=== PATIENT | female | born 1965 | race Caucasian/White ===

== ENCOUNTER 2017-06-03 08:00 | Emergency (ER) | payer OTHER ==
[2017-06-03 08:12] VITALS: BP 109/62
--- NOTE | 2017-06-03 08:32 | UC ---
Skin Complaint HPI - HPI Summary HPI Summary: 1 week of itching patches of red with vesicle rash --began after doing lawn work - History of Current Complaint Chief Complaint: UCSkin Time Seen by Provider: 06/03/17 08:31 Stated Complaint: RASH Hx Obtained From: Patient ?: No Onset/Duration: Sudden Onset, Lasting Weeks - 1, Still Present Skin Exposure Onset/Duration: Weeks Ago - 1 Onset Severity: Moderate Current Severity: Moderate Location: Diffuse Character: Redness, Painful Aggravating: Nothing Alleviating: Nothing Associated Signs & Symptoms: Positive: Rash Related History: Possible Reaction to: Environmental Exposure - Allergy/Home Medications Allergies/Adverse Reactions: Allergies Allergy/AdvReac Type Severity Reaction Status Date / Time Naproxen Allergy Hives Verified 06/03/17 08:12 Home Medications: Home Medications Amphetamine MIXED SALT TAB* [Adderall TAB*] 10 mg PO DAILY 06/03/17 [History Confirmed 06/03/17] Amphetamine MIXED SALTS TAB* [Adderall TAB*] 7.5 mg PO 1700 06/03/17 [History Confirmed 06/03/17] oxyCODONE/Acetamin 5/325 MG* [Percocet 5/325 TAB*] 1 tab PO TID PRN 06/03/17 [ History Confirmed 06/03/17] Review of Systems Constitutional: Negative Skin: Rash - red base, vesicles, itchy scattered patches Eyes: Negative ENT: Negative Respiratory: Negative Cardiovascular: Negative Gastrointestinal: Negative Genitourinary: Negative Motor: Negative Neurovascular: Negative Musculoskeletal: Negative Neurological: Negative Psychological: Negative All Other Systems Reviewed And Are Negative: Yes PMH/Surg Hx/FS Hx/Imm Hx Previously Healthy: Yes Psychological History: Other Other Psychological History: issues with concentration---relef with Adderal - Surgical History Surgical History: Yes Surgery Procedure, Year, and Place: RIGHT KNEE X10, THYROID, PARTIAL HYST, C- SECT, APPendectomy, TUMOR REMOVED FROM THIGH - Family History Known Family History: Positive: Other - Lung cancer - Social History Occupation: Employed Full-time Lives: With Family Alcohol Use: Occasionally Alcohol Amount: 1-2 DRINKS/WEEKEND Substance Use Type: None Smoking Status (MU): Never Smoked Tobacco Have You Smoked in the Last Year: No - Immunization History Most Recent Influenza Vaccination: 08/16 Physical Exam Triage Information Reviewed: Yes Appearance: Well-Appearing, No Pain Distress, Well-Nourished Vital Signs: Initial Vital Signs Temp 98.0 F 06/03/17 08:09 Pulse 88 06/03/17 08:09 Resp 16 06/03/17 08:09 BP 109/62 06/03/17 08:09 Pulse Ox 100 06/03/17 08:09 Vital Signs Reviewed: Yes Eye Exam: Normal Eyes: Positive: Conjunctiva Clear ENT Exam: Normal ENT: Positive: Normal ENT inspection, Hearing grossly normal. Negative: Nasal congestion, Nasal drainage, Trismus, Muffled/hoarse voice Dental Exam: Normal Neck exam: Normal Neck: Positive: Supple, Nontender, No Lymphadenopathy Respiratory Exam: Normal Respiratory: Positive: Chest non-tender, No respiratory distress, No accessory muscle use Cardiovascular Exam: Normal Cardiovascular: Positive: RRR, Pulses Normal, Brisk Capillary Refill Musculoskeletal Exam: Normal Musculoskeletal: Positive: Strength Intact, ROM Intact, No Edema Neurological Exam: Normal Neurological: Positive: Alert, Muscle Tone Normal Psychological Exam: Normal Skin Exam: Other Skin: Positive: rashes - patches of itchy red with vesiculer resh Course/Dx - Course Course Of Treatment: Lideex 0.05% Bid for 2 weeks max use benadryl prn (pt refused prednisone) follow with pcp - Differential Diagnoses - Skin Complaint Differential Diagnoses: Contact Dermatitis, Impetigo, Poison [place], Poison [place], Varicella Zoster - Diagnoses Provider Diagnoses: contact dermititis to unknown enviromental exposure Discharge - Discharge Plan Condition: Stable Disposition: HOME Prescriptions: Fluocinonide 0.05% CM (NF) [Lidex 0.05% CREAM (NF)] 1 applic TOPICAL BID #60 gm Patient Education Materials: Diphenhydramine (By mouth), Contact Dermatitis (ED ) Referrals: Chidi Chaves MD [Primary Care Provider] - If Needed
== END 2017-06-03 08:53 | disposition home or self-care (01) ==
LOC: UCEAST 08:00
DX: L25.9 Unspecified contact dermatitis, unspecified cause (principal)
CPT/HCPCS: 99212; G0463

== ENCOUNTER 2017-09-27 16:19 | Emergency (ER) | payer OTHER ==
--- NOTE | 2017-09-27 18:41 | RAD ---
INDICATION: 2 month history of left upper leg pain negative sonograms September 26, 2017, September 27, 2017 COMPARISON: Sonograms September 26, 2017, September 27, 2017 TECHNIQUE: 193 noncontrast axial source images were acquired. Coronal and sagittal reconstructed images were generated. Bone and soft tissue windows are reviewed. FINDINGS: There are no acute bony findings. The muscular elements about the upper extremity are normal. The fat muscle interface is intact. The subcutaneous soft tissues are normal. IMPRESSION: NO CT ABNORMALITIES. SUGGEST CLINICAL MANAGEMENT OF THE PAIN AND NONEMERGENT MR IMAGING IF THIS REMAINS A PERSISTENT OR WORRISOME FINDING.
[2017-09-27 18:46] LABS: Hematocrit 39 % (35-47); Hemoglobin 13.2 g/dl (12.0-16.0); Mean Corpuscular HGB Conc 34 g/dl (31-36); Mean Corpuscular Hemoglobin 31 pg (27-31); Mean Corpuscular Volume 90 fL (80-97); Mean Platelet Volume 9 um3 (7.4-10.4); Red Blood Count 4.31 10^6/ul (4.0-5.4); Red Cell Distribution Width 14 % (10.5-15); White Blood Count 6.1 10^3/ul (3.5-10.8)
[2017-09-27 19:09] LABS: Albumin 4.3 g/dL (3.2-5.2); BUN/Creatinine Ratio 16.3 (8-20); Calcium 9.3 mg/dL (8.6-10.3); EGFR African American 96.1 (>60); EGFR Non-African American 74.7 (>60); Globulin 2.5 g/dL (2-4); Magnesium 2.2 mg/dL (1.9-2.7); Potassium 3.7 mmol/L (3.5-5.0); Total Bilirubin 0.4 mg/dL (0.2-1.0); Total Protein 6.8 g/dL (6.4-8.9)
--- NOTE | 2017-09-27 19:21 | ED ---
Lower Extremity - HPI Summary HPI Summary: 52F presents with left thigh pain for months. She had a previous tumor in the area that was removed months ago. She states that the pain is sharp and is located onto the anterior lateral aspect of the thigh and does not radiate anywhere. She denies any numbness or tingling or any weakness. She denies any injury. She denies any decrease in sensation. She has a history of blood clot in other extremity but had a normal u/s today. She denies any back pain. Her primary sent her in for lab work and for a CT to see if tumor came back. It was a benign tumor that was removed in [place]. - History of Current Complaint Chief Complaint: EDGeneral Stated Complaint: LT THIGH PAIN Time Seen by Provider: 09/27/17 17:38 Pain Intensity: 4 - Allergies/Home Medications Allergies/Adverse Reactions: Allergies Allergy/AdvReac Type Severity Reaction Status Date / Time Naproxen Allergy Hives Verified 06/03/17 08:12 PMH/Surg Hx/FS Hx/Imm Hx Endocrine/Hematology History: Denies: Hx Diabetes, Hx Thyroid Disease Cardiovascular History: Reports: Hx Rheumatic Fever - 1992 Denies: Hx Hypertension, Hx Pacemaker/ICD Respiratory History: Denies: Hx Asthma, Hx Chronic Obstructive Pulmonary Disease (COPD) GI History: Reports: Hx Gastroesophageal Reflux Disease Denies: Hx Ulcer History: Denies: Hx Renal Disease Musculoskeletal History: Reports: Hx Arthritis - KNEES, Hx Bursitis - RT LEG Sensory History: Denies: Hx Hearing Aid Neurological History: Reports: Hx Headaches - FREQUENT Psychiatric History: Denies: Hx Panic Disorder - Cancer History Hx Chemotherapy: No Hx Radiation Therapy: No - Surgical History Surgery Procedure, Year, and Place: RIGHT KNEE X10, THYROID, PARTIAL HYST, C- SECT, APPendectomy, TUMOR REMOVED FROM THIGH Hx Anesthesia Reactions: No Infectious Disease History: No Infectious Disease History: Denies: Hx Clostridium Difficile, Hx Hepatitis, Hx Human Immunodeficiency Virus (HIV), Hx of Known/Suspected MRSA, Hx Shingles, Hx Tuberculosis, Hx Known/ Suspected VRE, Hx Known/Suspected VRSA, History Other Infectious Disease, Traveled Outside the [place] in Last 30 Days - Family History Known Family History: Positive: Other - Lung cancer - Social History Alcohol Use: Occasionally Alcohol Amount: 1-2 DRINKS/WEEKEND Substance Use Type: Reports: None Smoking Status (MU): Never Smoked Tobacco Have You Smoked in the Last Year: No Review of Systems Negative: Fever Negative: Chest Pain Negative: Shortness Of Breath Positive: Myalgia - left thigh pain All Other Systems Reviewed And Are Negative: Yes Physical Exam Triage Information Reviewed: Yes Vital Signs On Initial Exam: Initial Vitals Temp Pulse Resp BP Pulse Ox 98.1 F 86 20 126/77 100 09/27/17 16:23 09/27/17 16:23 09/27/17 16:23 09/27/17 16:23 09/27/17 16:23 Vital Signs Reviewed: Yes Appearance: Positive: Well-Appearing Skin: Positive: Warm, Dry Head/Face: Positive: Normal Head/Face Inspection Eyes: Positive: Normal, Conjunctiva Clear Respiratory/Lung Sounds: Positive: Clear to Auscultation, Breath Sounds Present Cardiovascular: Positive: Normal, RRR Musculoskeletal: Positive: Strength/ROM Intact - left thigh, Other - tender on anterior lateral left thigh, good pulses, sensation grossly intact Neurological: Positive: Reflexes Intact - patella Psychiatric: Positive: Normal - [place] Coma Scale Coma Scale Total: 15 Diagnostics - Vital Signs Vital Signs Temp Pulse Resp BP Pulse Ox 09/27/17 16:23 98.1 F 86 20 126/77 100 - Laboratory Lab Results: Lab Results 09/27/17 09/27/17 Range/Units 18:40 18:40 WBC 6.1 (3.5-10.8) 10^3/ul RBC 4.31 (4.0-5.4) 10^6/ul Hgb 13.2 (12.0-16.0) g/dl Hct 39 (35-47) % MCV 90 (80-97) fL MCH 31 (27-31) pg MCHC 34 (31-36) g/dl RDW 14 (10.5-15) % Plt Count 221 (150-450) 10^3/ul MPV 9 (7.4-10.4) um3 Neut % (Auto) 58.3 (38-83) % Lymph % (Auto) 32.4 (25-47) % [place] % (Auto) 6.0 (1-9) % Eos % (Auto) 2.4 (0-6) % Baso % (Auto) 0.9 (0-2) % Absolute Neuts (auto) 3.6 (1.5-7.7) 10^3/ul Absolute Lymphs (auto) 2.0 (1.0-4.8) 10^3/ul Absolute Monos (auto) 0.4 (0-0.8) 10^3/ul Absolute Eos (auto) 0.1 (0-0.6) 10^3/ul Absolute Basos (auto) 0.1 (0-0.2) 10^3/ul Absolute Nucleated RBC 0 10^3/ul Nucleated RBC % 0.1 Sodium 138 (133-145) mmol/L Potassium 3.7 (3.5-5.0) mmol/L Chloride 105 (101-111) mmol/L Carbon Dioxide 26 (22-32) mmol/L Anion Gap 7 (2-11) mmol/L BUN 13 (6-24) mg/dL Creatinine 0.80 (0.51-0.95) mg/dL Est GFR ( Amer) 96.1 (>60) Est GFR (Non-Af Amer) 74.7 (>60) BUN/Creatinine Ratio 16.3 (8-20) Glucose 97 (70-100) mg/dL Calcium 9.3 (8.6-10.3) mg/dL Magnesium 2.2 (1.9-2.7) mg/dL Total Bilirubin 0.40 (0.2-1.0) mg/dL AST 17 (13-39) U/L ALT 14 (7-52) U/L Alkaline Phosphatase 41 (34-104) U/L Total Protein 6.8 (6.4-8.9) g/dL Albumin 4.3 (3.2-5.2) g/dL Globulin 2.5 (2-4) g/dL Albumin/Globulin Ratio 1.7 (1-3) Result Diagrams: 09/27/17 18:40 09/27/17 18:40 Lab Statement: Any lab studies that have been ordered have been reviewed, and results considered in the medical decision making process. - CT leg CT Interpretation: No Acute Changes CT Interpretation Completed By: Radiologist Lower Extremity Course/Dx - Course Course Of Treatment: 52F presents with left thigh pain for months. She had a previous tumor in the area that was removed months ago. She states that the pain is sharp and is located onto the anterior lateral aspect of the thigh and does not radiate anywhere. She denies any numbness or tingling or any weakness. She denies any injury. She denies any decrease in sensation. She has a history of blood clot in other extremity but had a normal u/s today. She denies any back pain. Her primary sent her in for lab work and for a CT to see if tumor came back. It was a benign tumor that was removed in [place]. on exam full strenght of extremity, reflex intact. CT normal. labs normal. patient understands and agrees with plan. - Diagnoses Differential Diagnosis/HQI/PQRI: Positive: DVT, Sprain, Other - tumor Provider Diagnoses: Left thigh pain Discharge - Discharge Plan Condition: Good Disposition: HOME Patient Education Materials: Leg Pain (ED) Referrals: Chidi Chaves MD [Primary Care Provider] - Additional Instructions: Take Tylenol every 6 hours for pain Ice/heat Follow up with primary for continued care Return to ED if develop any new or worsening symptoms
[2017-09-27 19:43] VITALS: BP 119/69
== END 2017-09-27 19:42 | disposition home or self-care (01) ==
LOC: ED 16:19
DX: M79.652 Pain in left thigh (principal)
CPT/HCPCS: 36415; 80053; 83735; 85025; 99282

== ENCOUNTER 2018-04-11 13:51 | Inpatient (IN) | payer OTHER ==
--- NOTE | 2018-04-11 15:12 | RAD ---
INDICATION: Headache. COMPARISON: Comparison is made with a prior CT of the brain from January 29, 2015. TECHNIQUE: Contiguous axial sections of the brain were obtained from the skull base to the vertex without contrast. FINDINGS: The ventricles, cisterns and sulci are within normal limits. No significant focal abnormality or mass effect is seen. There is no evidence for hemorrhage. No significant focal osseous abnormality is seen. The visualized portion of the paranasal sinuses and mastoid air cells appear clear. IMPRESSION: NO EVIDENCE FOR ACUTE INTRACRANIAL ABNORMALITY.
[2018-04-11 15:27] LABS: Hematocrit 38 % (35-47); Hemoglobin 12.7 g/dl (12.0-16.0); Mean Corpuscular HGB Conc 34 g/dl (31-36); Mean Corpuscular Hemoglobin 31 pg (27-31); Mean Corpuscular Volume 91 fL (80-97); Platelet Count 197 10^3/ul (150-450); Red Blood Count 4.13 10^6/ul (4.0-5.4); Red Cell Distribution Width 14 % (10.5-15); White Blood Count 4.7 10^3/ul (3.5-10.8)
[2018-04-11 15:29] LABS: Urine Appearance Clear; Urine Blood Negative (Negative); Urine Color Straw; Urine Ketones Negative (Negative); Urine Protein Negative (Negative); Urine Specific Gravity 1.004 (1.010-1.030); Urine Urobilinogen Negative (Negative)
[2018-04-11 15:37] LABS: INR 0.87 (0.77-1.02)
[2018-04-11] MEDS ORDERED: NS 0.9% 1000 ML* 1,000 ML IV ONE (16:21)
[2018-04-11] MEDS ORDERED: Aspirin 81 mg CHEW TAB* 81 MG TAB.CHEW PO ONE (16:49)
[2018-04-11] MEDS ORDERED: Iohexol 350* (CONTRAST) 500 ML MDV IV ONE (16:53)
[2018-04-11] MEDS ORDERED: Iodixanol* (CONTRAST) 320 MG/ML 100 ML SDV IV ONE (16:57)
--- NOTE | 2018-04-11 18:00 | RAD ---
CPT II: CPT II Codes: 3100F INDICATION: Resolved right-sided facial droop. Now with headache. COMPARISON: Noncontrast CT of the brain from the same day does not reveal any acute abnormalities. TECHNIQUE: A CT angiogram of the head and neck was performed with 80 cc of Omnipaque 350. Contiguous axial sections were obtained from the thoracic inlet through the [place] of [place]. Images were reconstructed in the sagittal, coronal planes and in a 3-D volume rendered format. The distal cervical internal carotid artery diameter is used as the denominater for stenosis measurement. CTA NECK: The common and internal carotid arteries are patent without hemodynamically significant stenosis. Right: Below the level of the carotid bifurcation the common carotid artery measures 6 mm in diameter. The right internal carotid artery also measures 6 mm in diameter above the bifurcation yielding 0% degree stenosis. Left: Below the carotid bifurcation the common carotid artery measures 7 mm in diameter. The internal carotid artery immediately above the bifurcation measures 7 mm in diameter yielding 0% degree stenosis. The vertebral arteries are patent without gross abnormality. CTA of the brain: The internal carotid, anterior and middle cerebral arteries appear are patent without high grade stenosis or occlusion. The vertebral, basilar and posterior cerebral arteries appear patent without high grade stenosis or occlusion. The right posterior communicating artery is either extremely diminutive or absent. No focal luminal filling defect, aneurysm or vascular malformation is seen. NON-ARTERIAL FINDINGS: There is surgical material overlying the right lobe of the thyroid. The left lobe of the thyroid is heterogeneous in attenuation. IMPRESSION: Normal CT angiography of the head and neck.
[2018-04-11] MEDS ORDERED: Ondansetron INJ* 2 MG/ML SYRINGE (from 40/20 VIAL) IV PRN (18:21)
[2018-04-11] MEDS ORDERED: Acetaminophen TAB* 325 MG PO PRN (18:21)
[2018-04-11] MEDS ORDERED: oxyCODONE/Acetamin 5/325 MG* TAB PO PRN (18:23)
[2018-04-11] MEDS ORDERED: NS 0.9% 1000 ML* 1,000 ML IV SCH (19:00)
--- NOTE | 2018-04-11 20:33 | RAD ---
HISTORY: Headache and right-sided facial tingling COMPARISONS: Noncontrast CT of the brain as well as CTA of the head and neck from the same date TECHNIQUE: The following sequences were obtained of the head: Sagittal T1-weighted images, axial T2-weighted images, axial FLAIR images, axial susceptibility weighted images, axial T1-weighted images. Additionally, axial diffusion-weighted images were obtained with calculated apparent diffusion coefficients.. FINDINGS: HEMORRHAGE/INFARCT: There is no hemorrhage or acute infarct. MASSES/SHIFT: There is no mass or shift. EXTRA-AXIAL SPACES/MENINGES: There are no extra-axial fluid collections. SULCI AND VENTRICLES: The sulci and ventricles are normal in size and position for the patient's stated age. CEREBRUM: At the right thalamus there is a 6 mm focus of T2 bright signal (image 14 series 8). This does not correspond to bright signal on diffusion-weighted imaging. Otherwise the arechiga-white matter differentiation is maintained. BRAINSTEM: There are no focal parenchymal abnormalities. CEREBELLUM: There are no focal parenchymal abnormalities. The cerebellar tonsils are normal in size and position. SELLA: The sella is normal. PINEAL: The pineal region is clear. CP ANGLE/TEMPORAL BONES: The labyrinthine structures are grossly normal. VESSELS: Normal flow-voids are noted within the visualized vertebral vasculature. DIFFUSION ABNORMALITIES: There are no diffusion abnormalities. PARANASAL SINUSES/MASTOIDS: The paranasal sinuses are clear. ORBITS: The orbits are unremarkable. BONES AND SOFT TISSUE: No bone or soft tissue abnormalities are noted. IMPRESSION: POSSIBLE SMALL FOCI OF MICROVASCULAR DISEASE IN THIS OTHERWISE NONACUTE BRAIN MRI.
--- NOTE | 2018-04-11 22:32 | HP ---
CONTINUATION ADDENDUM NOW INCLUDED ON THIS REPORT ADMISSION HISTORY AND PHYSICAL: CC: Dr. Chaves; Dr. Constanza Cabrera.* HISTORY AND PHYSICAL: DATE OF ADMISSION: 04/11/18 PRIMARY CARE PROVIDER: Dr. Chaves. MY ATTENDING WHILE IN THE HOSPITAL: Yue Casper MD * (DICTATED BY ANDREEA IBRAHIM) CONSULTING NEUROLOGIST: Constanza Cabrera MD CHIEF COMPLAINT: Vertigo, neurological deficits. HISTORY OF PRESENT ILLNESS: Ms. Boo is a 52-year-old female with past medical history significant for a possible brain lesion on MRI from 2012, arthritis, and a thyroid lesion, who presents after yesterday she had an episode that lasted approximately 10, 20 minutes of which she describes as the room spinning, numbness in her right synagogue, a sensation of drooping in her left face as well as palpitations and presyncope. The patient also broke out in sweat. The patient afterwards developed a headache which is frontal, was initially very severe but has been diminishing, not improved with naproxen. The patient has a long history of headaches and had an MRI in 2012, which showed a possible brain lesion, ischemic or neoplastic not ruled out, that was not present on a repeat MRI. The patient continued having headaches, but has not had them for approximately 2 years. The patient's current headache is pounding and makes her just want to lie down and sleep it off. No photophobia. The patient has never had an episode like the one that occurred yesterday before. The patient has been having issues with leg cramping in both legs, but more on her right than the left, primarily in her big toe that resolves with massaging but is very painful. The patient with her episode had no chest pain, shortness of breath, nausea, or vomiting. The patient had no nausea or vomiting with her headache. CONTINUATION ADDENDUM: Due to concern for TIA we were asked to evaluate for admission PAST MEDICAL HISTORY: Brain lesion, arthritis, thyroid lesion. PAST SURGICAL HISTORY: Several right knee surgeries, removal of thyroid lesion , hysterectomy. MEDICATIONS: 1. Adderall 10 mg p.o. daily. 2. Valtrex, unknown dose as needed. 3. Percocet one tab p.o. q.6 hours as needed. ALLERGIES: NAPROXEN. FAMILY HISTORY: The patient's father of lung cancer. The patient's mother is alive and healthy. The patient has 2 siblings who are healthy. The patient has one child who is also in good health. SOCIAL HISTORY: The patient has never smoked. The patient uses alcohol occasionally. The patient has never used illicit drugs. 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 The patient is and has one child. The patient would like her , Zeke Boo, to be her healthcare proxy. REVIEW OF SYSTEMS: A 14-point review of systems was reviewed and is negative except as stated above. PHYSICAL EXAMINATION GENERAL: The patient is a 52-year-old female who appears stated age and sitting comfortably in bed, in no acute distress. VITAL SIGNS: Temperature 99.4, pulse rate 81, respiratory rate 15, oxygen saturation 90% on room air, blood pressure 113/72. HEENT: Head normocephalic and atraumatic. Sclerae anicteric. No conjunctival injection. Nasal mucosa moist. Oral mucosa moist. No pharyngeal erythema, discharge, or exudate. NECK: Supple, nontender. No lymphadenopathy. No carotid bruit auscultated. No JVD. RESPIRATORY: Clear to auscultation bilaterally. No wheezes, rales, or rhonchi. Good air exchange bilaterally. CARDIAC: Regular rate and rhythm. No clicks, murmurs, gallops, or rubs. Pulses 2+ in the bilateral dorsalis pedis, posterior tibialis, and radial areas. No calf tenderness noted bilaterally. ABDOMEN: Soft, nontender, and nondistended. Bowel sounds present and normoactive in all 4 quadrants. No hepatosplenomegaly. No abdominal bruits auscultated. GENITOURINARY: No suprapubic or CVA tenderness. NEUROLOGIC: Cranial nerves II through XII intact. No focal deficits. Strength preserved in bilateral upper and lower extremities distally and proximally. Cerebellar testing performed without difficulty. Sensation to light touch intact in the bilateral upper and lower extremities distally and proximally. Reflexes 2+ in the bilateral biceps and patellar areas, 1+ in the Achilles. Downgoing Babinski bilaterally. SKIN: Clean, dry, and intact. No rash. PSYCHIATRIC: Very pleasant and cooperative. DIAGNOSTIC STUDIES/LAB DATA: White blood cell count 4.7, hemoglobin 12.7, hematocrit 38. INR 0.87. APTT 29.4. Sodium 140, potassium 3.7, chloride 107, carbon dioxide 26, anion gap 7, BUN 14, creatinine 0.65, glucose 87, calcium 8.9. Bilirubin 0.4, AST 18, ALT 19, alkaline phosphatase 45. Troponin I 0.00. Total protein 6.3. Albumin 4.1, globulin 2.2. Urine shows specific gravity 1.004. No significant findings. Studies done while in the hospital: Brain CT read as no evidence for acute intracranial abnormality. A head CTA read as normal CT angiography of the head and neck. ASSESSMENT AND PLAN: IMPRESSION: 1. Ms. Boo is a 52-year-old female with past medical history significant for a brain lesion and removal of a thyroid nodule, who presents one day after having an episode that lasted approximately 10 to 20 minutes of dizziness, palpitations, presyncope, numbness, and facial droop with persistent headache to this point. The patient has a known history of headaches, which have at this point resolved. The patient will be admitted to the hospital for workup for transient ischemic attack including brain MRI, echocardiogram, and telemetry monitoring. The patient will also be seen in consultation by Neurology. 2. Brief neurological deficits, possible transient ischemic attack. The patient had neurological deficits spanning several different neurological regions including vertigo, numbness of her face, and possible facial droop. These were accompanied by cardiac in terms of palpitations and presyncope. The patient has never had an episode like this before. The patient's CT and CTA of her head were negative. The patient has a known brain lesion, which causes headaches. The patient has a persistent headache, unresponsive to medication. We will get an MRI of the brain to further characterize the lesion and look for ischemic foci. The patient appreciates Neurology input. It is possible that the patient's palpitations represented atrial fibrillation. She may have paroxysmal atrial fibrillation that has not been symptomatic before and that this is an embolic stroke. This could also be paradoxical embolus. This could also represent migraine aura, but the patient's headache does not have all the migraine's characteristics. The patient will be started on aspirin. The patient will have a lipid profile drawn, transthoracic echocardiogram,and MRI of the brain. The patient will have neurological checks every 4 hours. 3. Arthritis. The patient will have Tylenol and ibuprofen available for her arthritis. The patient will have her Percocet held at this time as to not to interfere with possible neurological evaluation. 4. Leg spasms. This possibly represents restless leg syndrome or electrolyte abnormality. We will monitor the patient's potassium and magnesium. This should be followed as outpatient. We will not institute treatment at this time. 5. DVT prophylaxis. The patient will have ambulation as tolerated. The patient will be up ad saman. The patient is low risk. 6. FEN. The patient will have normal saline at 75 mL an hour for one additional liter to see if dehydration is playing a role in her headache. 7. Disposition. The patient will be admitted under observation. TIME SPENT: Approximately 60 minutes were spent on this admission, 30 of which was spent [id number] with the patient obtaining the history and physical and discussing the treatment plan. This case has been discussed with my attending, Dr. Parveen Herron, and he is in agreement. ANDREEA IBRAHIM [id number]/CPS #: [id number]/CPS #: [id number] MICHAELA
[2018-04-12 05:07] LABS: ABS Basophils 0 10^3/ul (0-0.2); ABS Eosinophils 0.1 10^3/ul (0-0.6); ABS Lymphocytes 1.3 10^3/ul (1.0-4.8); ABS Monocytes 0.3 10^3/ul (0-0.8); ABS Nucleated RBC 0 10^3/ul; Eosinophil % 3.2 % (0-6); Hematocrit 34 % (35-47); Hemoglobin 11.5 g/dl (12.0-16.0); Lymphocyte % 35.3 % (25-47); Mean Corpuscular HGB Conc 34 g/dl (31-36); Mean Corpuscular Hemoglobin 32 pg (27-31); Mean Corpuscular Volume 92 fL (80-97); Nucleated Red Blood Cells % 0; Platelet Count 164 10^3/ul (150-450); Red Blood Count 3.66 10^6/ul (4.0-5.4); Red Cell Distribution Width 14 % (10.5-15); White Blood Count 3.8 10^3/ul (3.5-10.8)
[2018-04-12 05:22] LABS: EGFR Non-African American 117.6 (>60)
[2018-04-12] MEDS ORDERED: Amphetamine MIXED SALT TAB* 10 MG TAB PO SCH (09:00)
[2018-04-12] MEDS: Aspirin EC TAB* 81 MG TAB.EC PO SCH (10:16)
[2018-04-12] MEDS: Ibuprofen TAB* 400 MG PO PRN (10:24)
--- NOTE | 2018-04-12 13:19 | CONS ---
CC: Dr. Constanza Cabrera; Dr. Raffaele Purdy; Dr. Chidi Chaves CONSULTATION REPORT: DATE OF CONSULT: 04/12/18 REASON FOR CONSULT: Possible TIA/stroke. REQUESTING PHYSICIAN: ANDREEA Mayer CHIEF COMPLAINT: Right face drooping, dizziness, palpitations, facial abnormality. 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 She indicates she was sitting in her desk for about 30 minutes when she became extremely hot and felt as if she was moving. There was tingling on the top of her head. She went to the bathroom and she felt lightheaded. She looked in the mirror and did not look good. She felt as if she was going to faint. Her heart was beating fast. She developed sweating on the back of her neck. EMT was called and she felt like the right side of her face was drooping, however no one saw this. When asked if her speech was okay, she indicated she did not think so, but there was no particular difficulty communicating. She developed a headache about one to two hours afterwards in the bilateral temporofrontal region with some pounding, no associated photophobia, phonophobia, nausea or vomiting. She has had a history of frequent headaches in the past, which have gone away with no associated focal features. Of note she is on Adderall, which has been started relatively recently in the setting of her father's . She had a cup of coffee in the morning and breakfast and little bit of water. She denied any chest pain and indigestion at that time; however, the week prior she had 2 episodes of chest pressure, feeling as if an elephant was sitting on her chest. This occurred twice. Of note, she does not smoke. She has no previous cardiac history. PAST MEDICAL HISTORY: Cristin Boo' past medical history includes a brain lesion, which was discovered in 2012 and for which she went to [facility]. She had a repeat scan in 2014, which did not note the abnormality. Please see further thoughts about this below in this consultation. She has a history of arthritis with particular problems with her right knee. She had a benign right thyroid lesion for which she had surgery. There is a history of headaches , now better. She has a history of cold sores. PAST SURGICAL HISTORY: Her surgeries include a benign tumor removed off the left thigh in an area that has been bothering her lately. Repeat surgeries with the right knee for which she plans to get a right knee replacement with Dr. Purdy this summer, thyroid surgery for a benign lesion, partial hysterectomy , and appendectomy. MEDICATIONS: Prior to admission included; 1. Adderall 10 mg p.o. daily. 2. Percocet 5/325 one tab p.o. q.6 hours p.r.n. pain for which she took about 2 times a week for her right knee. 3. Valtrex, which she used as needed for cold sore. ALLERGIES: She lists allergies to NAPROSYN, which causes hives but she tells me she can take Aleve without any difficulty, so she is not sure if that is truly an allergy. FAMILY HISTORY: Includes her father who recently of lung cancer. She had been traveling back and forth frequently to [place] for the last 3 years for caring for him. Her mother is healthy. She has 2 brothers who are healthy. SOCIAL HISTORY: Cristin Boo does not smoke. She occasionally drinks alcohol. She is . REVIEW OF SYSTEMS: She denies any change in vision, speech is as noted above. There has been chest heaviness and palpitations as noted above. There has been no shortness of breath. She denies any change in bowel or bladder habits. There has been no weight loss, drenching night sweats or high fevers for unknown reason. No numbness or weakness of arms or legs. Psychiatric history includes difficulty focusing after the of her father for which she was started on Adderall. She has found that more recently she has been irritable. Orthopedic history is as mentioned above. Infectious disease history is as mentioned above. PHYSICAL EXAM: On examination, Cristin Boo' most recent vitals include a temperature of 97.8 degrees Fahrenheit, blood pressure of 99/62, pulse of 82 and regular, respiratory rate of 16, and saturation 99% on room air. She had a regular cardiac rhythm. Her lungs were clear to auscultation. There was no carotid bruit. No evidence of peripheral edema. Her peripheral pulses were intact. There was no evidence of petechiae. She is awake, alert, articulate, had normal language function and adequate fund of knowledge. Her pupils were equal and responsive to light. Her fundi were flat shaped, full extraocular movements with no nystagmus. Full del cid to confrontation. Her facial expression, sensation, and hearing were equal. Palate was upgoing. Tongue was midline. Sternocleidomastoid and trapezius were 5/5 in strength. There was normal bulk and tone. No pronator drift with full strength in the upper and lower extremities and normal [id number]-kr-[id number] and heel-to- reynolds movements. Vibration sensation was decreased at the large toes by 5 seconds. Proprioception was intact. There was no asymmetries to pinprick, cold or light touch. Her reflexes were 2+ and symmetric in the upper and lower extremities. Her toes were flexor response. Romberg was negative. She performed tandem gait without difficulty. She could walk on her heels and her toes. DIAGNOSTIC STUDIES/LAB DATA: MRI of the brain, which was read as showing a probable right small foci of microvascular disease that was read as 6 mm on T2 weighted images with no acute changes. This film was reviewed directly and indeed abnormal signal was noted on the edge of the right thalamus near the third ventricle. In retrospective, I went to back to look at 2012 where there was a lesion in the periaqueductal arechiga going towards the right greater than the left thalamus. In 2015, when I look at those films although was not read in the report, there was still residual of this lesion most prominently seen in the right thalami and in the most recent film, one can also look and see some of these changes that still exist with the same change in the right thalamus that was noted in 2015 and 2013. Her CTA did not show any evidence of significant stenosis, and her CT of the brain did not show any evidence of intracranial problems. Her laboratory tests include metabolic panel, which initially showed only an elevated BUN and creatinine ratio and a low total protein. After IV, she had slightly low calcium and high chloride. Her lipid profile this morning showed a total cholesterol of 160, LDL 84, her triglycerides were 75, and her HDL was 60.6. Her CBC was initially normal, today after hemodilution showed some evidence of anemia with hemoglobin of 11.5 and 34 respectively. IMPRESSION: Cristin Boo is a 52-year-old woman with history of a known brain lesion and history of recent loss, on Adderall for focus, who comes in with an episode of presyncope, palpitations, tingling on the head, and subjective feeling of facial asymmetry. One must question the role of hypoperfusion causing the presyncopal feeling, accordingly she does need further cardiac workup. One must also question the role of an arrhythmia. She is on Holter and may need further monitoring. PLAN/RECOMMENDATIONS: I would stop the Adderall as this may contribute to her symptoms. She has had 2 episodes of feeling as if an elephant is on her chest and she needs further cardiac workup. I would continue her on aspirin and an echo is pending. Her CTA of the brain and neck are okay, and her lipid profile does not show significant pathology. For now, I will continue on aspirin for the potential of cardiac disease. It is possible some of her symptoms (i.e. facial droop) could have represented a TIA in the setting of hypoperfusion; however, many of the symptoms do not fit with TIA such as the presyncope and the tingling on top of the head. In addition, she does not have other symptoms to go with her subjective facial asymmetry such as symptoms in the arm or leg, and no one else noticed the facial asymmetry that was observing her. In regards to her abnormal lesion in her MRI of the brain, this appears to be stable if not improved since 2013. I have suggested followup as an outpatient, so I can review this with her and we will decide on further imaging in the future. I do not see any evidence of new injury. TIME SPENT: Over an hour was spent in direct face to face patient care, over 90 minutes was spent in review and coordination of case. FOLLOWUP: We planned an outpatient neurology in 8 to 10 weeks. [id number]/[facility] #: [id number] MICHAELA
--- NOTE | 2018-04-12 17:30 | PN ---
Subjective Date of Service: 04/12/18 Interval History: Denies chest pain or shortness of breath. Denies abd pain , n/v/d . Denies dizziness or facial numbness. denies palpitations Family History: Unchanged from Admission Social History: Unchanged from Admission Past Medical History: Unchanged from Admission Objective Active Medications: Acetaminophen (Tylenol Tab*) 650 mg PO Q6H PRN PRN Reason: FEVER/PAIN Last Admin: 04/11/18 21:35 Dose: 650 mg Aspirin (Aspirin Ec Tab*) 81 mg PO DAILY MIRIAN Last Admin: 04/12/18 10:16 Dose: 81 mg Ibuprofen (Motrin Tab*) 400 mg PO Q6H PRN PRN Reason: PAIN Last Admin: 04/12/18 10:24 Dose: 400 mg Ondansetron HCl (Zofran Inj*) 4 mg IV Q6H PRN PRN Reason: NAUSEA Vital Signs - 8 hr 04/12/18 15:27 Temperature 98.5 F Pulse Rate 83 Blood Pressure 102/63 (mmHg) O2 Sat by Pulse 98 Oximetry Oxygen Devices in Use Now: None Appearance: appears comfortable sitting in the bed Eyes: No Scleral Icterus Ears/Nose/Mouth/Throat: Clear Oropharnyx, Mucous Membranes Moist Neck: NL Appearance and Movements; NL JVP, Trachea Midline Respiratory: Symmetrical Chest Expansion and Respiratory Effort, Clear to Auscultation Cardiovascular: NL Sounds; No Murmurs; No JVD, No Edema Abdominal: NL Sounds; No Tenderness; No Distention Extremities: No Edema, No Clubbing, Cyanosis Skin: No Rash or Ulcers Neurological: Alert and Oriented x 3, NL Sensation, NL Muscle Strength and Tone Nutrition: Taking PO's Result Diagrams: 04/12/18 04:58 04/12/18 04:58 Assess/Plan/Problems-Billing Assessment: Ms. Boo is a 52 y.o female brain lesion, arthritis and thyroid lesion who presented to the emergency room for evaluation of episode that lasted approx 20 minutes where the room was spinning, right temporal numbness and the sensation of left facial drooping, as well as palpitations and feeling pre syncopal. Asked to evaluate for possible TIA symptoms - Patient Problems (1) Syncope, near Current Visit: Yes Status: Acute Comment: Seen by Neurology today- TIA ruled out as symtoms are not consistent with TIA features -Suspect symptoms may be related to adderall - Neurology suggested full cardiac work up as a possible cause of her near syncopal episode as the patient reports that she had 2 episodes approx 1 week ago of chest pressure/ pain and palpitations lasting approx 10 min, states that the pain was in the center of her chest. denies any shortness or diaphoresis with the chest pain. denies any excertional chest pain. Denies chest pain when climbing stairs. - will order stress for saturday - FRANCESCA score is 0 giving her a 5% risk cardiac event in the next 14 days. (2) Palpitation Current Visit: Yes Status: Acute Code(s): R00.2 - PALPITATIONS SNOMED Code (s): 04985407 Comment: suspect this is related to adderall and caffeine consumption (3) DVT prophylaxis Current Visit: Yes Status: Acute Code(s): YIR8277 - SNOMED Code(s): 206223850 Comment: ambulation (4) Full code status Current Visit: Yes Status: Acute Code(s): Z78.9 - OTHER SPECIFIED HEALTH STATUS SNOMED Code(s): 630964912 Status and Disposition: inpatient
[2018-04-13] MEDS: Ibuprofen TAB* 400 MG PO PRN (07:36)
[2018-04-13] MEDS: Aspirin EC TAB* 81 MG TAB.EC PO SCH (07:36)
--- NOTE | 2018-04-13 13:34 | ECHO ---
Patient: IGOR LOPEZ [facility] Rec#: [id number] : 1965 Date: 04/13/2018 Age: 52y Height: 160.02 cm / 63.0 in Weight: 62.14 kg / 137.0 lbs Sex: F BSA: 1.65 Room#: 433 Admit Date#: 04/12/2018 Type: Inpatient Referring: Young Mckeon Reading: Gautam Murguia MD Call Center Trainer: Kim Ronquillo RDCS CC: Chidi Chaves MD Transthoracic Echocardiogram Indication: TIA BP: 101/59 HR: 77 Rhythm: NSR Findings History: Brain lesion 2012, thyroid lesion. Technical Comments: The study quality is fair. Completed at 1230. Left Ventricle: The left ventricular chamber size is normal. There is no left ventricular hypertrophy. Global left ventricular wall motion and contractility are within normal limits. There is normal left ventricular systolic function. The estimated ejection fraction is 55-60%. Normal left ventricular diastolic filling is observed. Left Atrium: The left atrial chamber size is normal. Right Ventricle: Moderator Band present. The right ventricular cavity size is normal. The right ventricular global systolic function is normal. Right Atrium: The right atrial cavity size is normal. Interatrial septum appears intact without evidence of shunting. There were late bubbles seen in the left atrium. Aortic Valve: The aortic valve is trileaflet. There is no evidence of aortic valve thickening. There is no evidence of aortic regurgitation. There is no evidence of aortic stenosis. Mitral Valve: The mitral valve leaflets are mildly thickened. There is mild mitral regurgitation. There is no evidence of mitral stenosis. Tricuspid Valve: The tricuspid valve leaflets are normal. There is a physiologic tricuspid regurgitation. Unable to estimate the right ventricular systolic pressure. There is no tricuspid stenosis. Pulmonic Valve: The pulmonic valve appears normal. There is trace to mild pulmonic regurgitation. There is no pulmonic stenosis. Pericardium: There is no significant pericardial effusion. Aorta: There is no dilatation of the ascending aorta. There is no dilatation of the aortic arch. The aortic root is normal in size. Pulmonary Artery: The main pulmonary artery appears normal. Venous: The inferior vena cava appears normal in size. There is a greater than 50% respiratory change in the inferior vena cava dimension. Contrast: Normal saline was used as contrast for the bubble study. Images 1 and 2. Image 2 visualizes valsalva maneuver and coughs. Intravenous contrast was used to help determine presence of intracardiac shunting. Summary: There was not any prior study for comparison. Conclusions Global left ventricular wall motion and contractility are within normal limits. The estimated ejection fraction is 55-60%. There were late bubbles seen in the left atrium. There is mild mitral regurgitation. There is a physiologic tricuspid regurgitation. There is trace to mild pulmonic regurgitation. Measurements Name Value Normal Range RVIDd (AP) 2D 2.5 cm (0.9 - 2.6) RVDdMajor (2D) 3 cm (2.2 - 4.4) RAd ISD 4CH 4 cm (3.4 - 4.9) RA (A4C)W 2.9 cm (2.9 - 4.6) IVSd (2D) 0.8 cm (0.6 - 1) LVPWd (2D) 0.7 cm (0.6 - 1) LVIDd (2D) 4.1 cm (3.6 - 5.4) LVIDs (2D) 2.7 cm - LV FS (2D) 34 % (25 - 45) Aortic Annulus 1.8 cm (1.4 - 2.6) Ao root diameter (2D) 2.8 cm (2.1 - 3.5) Ascending Ao 2.9 cm (2.1 - 3.4) Aortic arch 2.1 cm (1.8 - 3.4) LA dimension (AP) 2D 3.2 cm (2.3 - 3.8) LAd ISD 4CH 4 cm (2.9 - 5.3) LA ISD 4CH W 3.5 cm (2.5 - 4.5) Name Value Normal Range LA ESV SP 4CH (A/L) 26 ml - LA ESV SP 2CH (A/L) 59 ml - LA ESV BP (A/L) 43 ml - LA ESV BP (A/L) index 26 ml/m2 - LA ESV SP 4CH (MOD) 25 ml - LA ESV SP 2CH (MOD) 58 ml - Name Value Normal Range MV E-wave Vmax 0.81 m/sec - MV deceleration time 233.3 msec - MV A-wave Vmax 0.52 m/sec - MV E:A ratio 1.57 ratio - LV septal e' Vmax 0.11 m/sec - LV lateral e' Vmax 0.11 m/sec - LV E:e' septal ratio 7.36 ratio - LV E:e' lateral ratio 7.36 ratio - Name Value Normal Range AV Vmax 1.1 m/sec - AV VTI 23.28 cm - AV peak gradient 4.9 mmHg - AV mean gradient 3.08 mmHg - LVOT Vmax 0.87 m/sec - LVOT VTI 17.74 cm - LVOT peak gradient 3.03 mmHg - LVOT mean gradient 1.62 mmHg - TONY Vmax 1.04 m/sec - Name Value Normal Range IVC diameter 1.8 cm - Name Value Normal Range PV Vmax 0.75 m/sec - PV peak gradient 2.27 mmHg -
--- NOTE | 2018-04-13 14:47 | PN ---
Subjective Date of Service: 04/13/18 Interval History: no complaints, denies chest pain or shortness of breath. denies abd n/v/d. denies dizziness or lightheadedness Family History: Unchanged from Admission Social History: Unchanged from Admission Past Medical History: Unchanged from Admission Objective Active Medications: Acetaminophen (Tylenol Tab*) 650 mg PO Q6H PRN PRN Reason: FEVER/PAIN Last Admin: 04/11/18 21:35 Dose: 650 mg Aspirin (Aspirin Ec Tab*) 81 mg PO DAILY MIRIAN Last Admin: 04/13/18 07:36 Dose: 81 mg Ibuprofen (Motrin Tab*) 400 mg PO Q6H PRN PRN Reason: PAIN Last Admin: 04/13/18 07:36 Dose: 400 mg Ondansetron HCl (Zofran Inj*) 4 mg IV Q6H PRN PRN Reason: NAUSEA Vital Signs - 8 hr 04/13/18 04/13/18 07:46 08:00 Temperature 98.1 F Pulse Rate 69 Respiratory 16 18 Rate Blood Pressure 107/67 (mmHg) O2 Sat by Pulse 99 Oximetry Oxygen Devices in Use Now: None Appearance: appears comfortable sitting in bed Eyes: No Scleral Icterus Ears/Nose/Mouth/Throat: Clear Oropharnyx, Mucous Membranes Moist Neck: NL Appearance and Movements; NL JVP, Trachea Midline Respiratory: Symmetrical Chest Expansion and Respiratory Effort, Clear to Auscultation Cardiovascular: NL Sounds; No Murmurs; No JVD, No Edema Abdominal: NL Sounds; No Tenderness; No Distention Extremities: No Edema, No Clubbing, Cyanosis Skin: No Rash or Ulcers, No Nodules or Sclerosis Neurological: Alert and Oriented x 3, NL Gait, NL Muscle Strength and Tone Nutrition: Taking PO's Result Diagrams: 04/12/18 04:58 04/12/18 04:58 Assess/Plan/Problems-Billing Assessment: Ms. Boo is a 52 y.o female brain lesion, arthritis and thyroid lesion who presented to the emergency room for evaluation of episode that lasted approx 20 minutes where the room was spinning, right temporal numbness and the sensation of left facial drooping, as well as palpitations and feeling pre syncopal. Asked to evaluate for possible TIA symptoms - Patient Problems (1) Syncope, near Current Visit: Yes Status: Acute Comment: Seen by Neurology- TIA ruled out as symtoms are not consistent with TIA features -Suspect symptoms may be related to adderall - Neurology suggested full cardiac work up as a possible cause of her near syncopal episode as the patient reports that she had 2 episodes approx 1 week ago of chest pressure/ pain and palpitations lasting approx 10 min, states that the pain was in the center of her chest. denies any shortness or diaphoresis with the chest pain. denies any excertional chest pain. Denies chest pain when climbing stairs. - will order stress for saturday - FRANCESCA score is 0 giving her a 5% risk cardiac event in the next 14 days. (2) Palpitation Current Visit: Yes Status: Acute Code(s): R00.2 - PALPITATIONS SNOMED Code (s): 64114324 Comment: suspect this is related to adderall and caffeine consumption (3) DVT prophylaxis Current Visit: Yes Status: Acute Code(s): TXE8455 - SNOMED Code(s): 885195819 Comment: ambulation (4) Full code status Current Visit: Yes Status: Acute Code(s): Z78.9 - OTHER SPECIFIED HEALTH STATUS SNOMED Code(s): 416329872 Status and Disposition: inpatient
--- NOTE | 2018-04-13 21:03 | PN ---
PROGRESS NOTE: DATE OF SERVICE: 04/13/18 - ROOM #433 INTERVAL HISTORY: Overnight, there have been no new symptoms. She denies any chest pain, chest pressure, palpitations. There has been no tingling, facial asymmetry. Her headache got better yesterday with Motrin; it did return this morning and she has just taken a Motrin. PHYSICAL EXAMINATION: Today, her most recent temperature was 97.7 degrees Fahrenheit, her cardiac rate was 66, her respiratory rate was 16, she was satting 100% on room air, blood pressure was 101/59. She had regular cardiac rhythm. Her lungs are clear to auscultation. There is no carotid bruit. No peripheral edema. She is awake, alert, articulate. She had full extraocular movements with no nystagmus. Full del cid to confrontation. Her facial expression and sensation were equal. Palate was upgoing. There was no dysarthria. She had no pronator drift. She gave good strength in her upper and lower extremities with normal finger-to- nose and egna-wo-koxm movements. She has been on her bed without difficulty. Monitor was reviewed. She is now off Adderall. LABORATORY DATA: New data includes hemoglobin A1c at 5.4. IMPRESSION AND PLAN: Cristin Boo is a 52-year-old woman admitted with episode of presyncope, palpitations, tingling on top of the head, subjective facial asymmetry, and history of recent chest pressure "as if an elephant was sitting on" her chest twice. She has had no repeat symptoms. Question of Adderall contribution was raised and has been stopped. She has been started on aspirin. I have encouraged her to walk around the floor today, so we can pick up worker rhythm when she is moving. Question of arrhythmia is raised given the history of chest pressure, question of cardiac disease is raised, and further workup is being performed with echocardiogram, Holter, and planned stress test. She also has a known abnormal lesion on brain as discussed in consultation, and will follow up with me in approximately 8 to 10 weeks. TIME SPENT: Over 15 minutes was spent in direct [id number] patient care. Over 50% of that time was spent in education and counseling regarding diagnosis , differential diagnosis, the importance of self-care. All questions were answered. [id number]/[facility] #: [id number] [facility]
[2018-04-14] MEDS: Ibuprofen TAB* 400 MG PO PRN (08:11)
[2018-04-14] MEDS: Aspirin EC TAB* 81 MG TAB.EC PO SCH (08:12)
[2018-04-14] MEDS ORDERED: Aminophylline IV* 25 MG/ML 10 ML VIAL ONE (10:49)
[2018-04-14] MEDS ORDERED: Regadenoson* 0.4 MG/5 ML SYRINGE ONE (10:49)
--- NOTE | 2018-04-14 12:32 | RAD ---
HISTORY: Chest pain COMPARISONS: None TECHNIQUE: A 1 day stress/rest myocardial perfusion study was performed, with pharmacologic stress. The stress portion was monitored by Dr. Wong. Gated SPECT imaging was performed, with CT-based attenuation correction DOSE: Stress: Technetium 99m tetrofosmin, 25.02 millicuries, injected at 11:18 AM on April 14, 2018 Rest: Technetium 99m tetrofosmin, 10.43 millicuries, injected at 7:50 AM on April 14, 2018 Pharmacologic agent: Lexiscan FINDINGS: CARDIAC MONITORING: No ST depression EF: 66% TID: 1.15 MOTION: Normal motion, with normal wall thickening. PERFUSION: There are no fixed or reversible perfusion defects. OTHER: None IMPRESSION: NO FIXED OR REVERSIBLE PERFUSION DEFECTS ASSESSMENT: LOW RISK. Based on imaging criteria from ACC/AHA 2002. Guideline Update for the Management of Patient's with Chronic Stable Angina, table 23. Noninvasive Risk Stratification. CPT II Codes: 6548T1W
[2018-04-14 13:08] VITALS: BP 116/66
--- NOTE | 2018-04-15 08:21 | DS ---
DISCHARGE SUMMARY: DATE OF ADMISSION: 04/11/18 DATE OF DISCHARGE: 04/14/18 PRIMARY CARE PROVIDER: Dr. Chaves. ATTENDING PHYSICIAN WHILE IN THE HOSPITALIST: Dr. Parveen Herron* (dictated by Lit Melendrez NP). PRIMARY DIAGNOSIS: Presyncope. SECONDARY DIAGNOSES: 1. Brain lesion. 2. Arthritis. 3. Thyroid lesion with removal of the thyroid lesion. STUDIES COMPLETED WHILE IN THE HOSPITAL: She had a CT of the brain on 04/11/18 , radiologist's impression: No evidence of acute intracranial abnormality. She had a CT of the head on 04/11/18, radiologist's impression: Normal CT angiography of the head and neck. She had an MRI of the brain on 04/11/18, radiologist's impression: Small foci of microvascular disease in this otherwise nonacute brain MRI. At the right thalamus, there is a 6 mm focus of T2 bright signal. There was no hemorrhage or acute infarct. She had a transthoracic echo on 04/11/18, she had this completed on 04/13/18, conclusion: Global left ventricular wall motion and contractility are within normal limits. The estimated ejection fraction was 55% to 60%. There were late bubbles seen in the left atrium. There was mild mitral regurgitation. There is a physiologic tricuspid regurgitation. There is trace mild pulmonic regurgitation. She had a nuclear stress test completed on 04/14/18, radiologist 's impression: No fixed or reversible perfusion deficits. Normal wall motion with normal wall thickening. This is a low risk. She had no chest pain or ST depressions on her exercise stress. DISCHARGE MEDICATIONS: Aspirin 81 mg p.o. daily. Continued home medication: Percocet 1 tablet q.6 hours as needed for pain. Discontinued medication: Adderall. HISTORY OF PRESENT ILLNESS AND HOSPITAL COURSE: Ms. Boo is a 52-year-old female with past medical history significant for brain lesion on an MRI in 2012 , arthritis and thyroid lesion that was surgically removed, who presented to the emergency room complaining of an episode that lasted 10 to 20 minutes, which she describes as a room spinning, numbness in her right jehovah's witness and sensation of drooping in her left face as well as palpitations and presyncope. The patient broke out into a sweat, afterwards developed a headache which was frontal. It was initially very severe but has been diminishing, not improved with naproxen. The patient has a long-standing history of headaches and had an MRI in 2012, which showed a possible brain lesion. When evaluated in the emergency room, the patient had a pounding headache. Denied any photophobia. The patient reports that this episode occurred one day prior to her presenting to the emergency room. While in the emergency room, she denied any chest pain, shortness of breath, nausea, or vomiting. The patient also reports that she did not have any nausea or vomiting with her headache. While in the hospital, she was seen and consulted by Neurology who did not feel that her symptoms were consistent with TIA symptoms. There was a concern that the symptoms the patient was feeling was related to hyperperfusion causing presyncopal feelings and recommended a further cardiac workup. Neurology also recommended stopping Adderall, which was stopped during her hospitalization as this could contribute to her symptoms of palpitations. It was felt that many of her symptoms did not fit TIA symptoms. In regards to abnormal lesion on her MRI brain and appears to be stable if not improved since 2012 and Neurology recommended neurology followup as an outpatient to decide on future imaging. During this hospitalization, she had a full cardiac workup. Her troponins were negative at 0.00 x2. She had a nuclear stress test, it was low risk. She was monitored on telemetry with no arrhythmias noted. She had a transthoracic echocardiogram, which showed late bubbles on the bubble study, but otherwise is within normal limits. At this time, Ms. Boo is stable for discharge home. Vital signs are as follows; temperature was 97.9, heart rate was 66, respirations 16, O2 saturation was 100%, blood pressure 116/66. DISCHARGE PLAN: Ms. Boo will be discharged home. Activity as tolerated. 1. Presyncopal. At this time, I suspect her symptoms of palpitations and the room spinning was related to her possible use of Adderall and caffeine intake as well as her increased stress of her job. It was recommended during this hospitalization that the patient stop her Adderall. 2. The patient's transthoracic echocardiogram did show late bubbles during the bubble study. The patient was placed on aspirin 81 mg p.o. daily and further management of the finding can be completed as outpatient. 3. The patient was advised to decrease stress and advised to discontinue her Adderall as well as limit her caffeine intake to prevent these symptoms in the future. As far as her chest pain, her nuclear stress test was low risk. There were no perfusion deficits or fixed defects. FOLLOWUP: The patient is to follow up with her primary care provider Dr. Chaves in 4 to 7 days. The patient was advised to return to the emergency room with any increased chest pain or shortness of breath or any other worsening symptoms and the patient verbalized understanding. TIME SPENT: Time spent on this discharge was approximately 60 minutes, greater than half that time was spent with the patient discussing discharge plans and implementing those plans. This was discussed with my attending physician, Dr. Parveen Herron, he is in agreement with my plan. CONDITION AT DISCHARGE: Stable. LIT MELENDREZ NP [id number]/[facility] #: [id number] MTDKrunal
--- NOTE | 2018-05-06 07:59 | ED ---
Krzysztof Kolb Angela, scribed for Dell Johnson MD on 04/11/18 at 1541 . Headache - HPI Summary HPI Summary: This pt is a 52 y/o female presenting to [facility] c/o headache since yesterday. 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 At onset of her symptoms pt was sitting at the table and class was about to start. It was 09:00 and she just had finished breakfast. Denies having had alcohol or taking her percocet (which she takes for knee replacement), but she did take Adderall as usual. She states the top of her head began tingling and thought she was going to pass out. Pt notes she was told she turned pale and EMT was called. As she was talking to EMT pt felt the right side of her mouth felt "funny," tingling and felt "it was drooping." Her BG was 87. Pt refused to be transferred to a hospital as she didn't want to miss her flight back home. She states this episode of symptoms lasted approximately 10 minutes. Her headache began yesterday after all her symptoms resolved. Today her headache continues but all her other symptoms have resolved. Her headache is located on the frontal side. Currently she states feeling tired and with a headache. Pt states her company is understaffed and she has been working 70 hours/week. She went to see her PCP (Dr. Chaves) today and was told to come to the ED for further evaluation. - History Of Current Complaint Chief Complaint: EDHeadache Stated Complaint: FACE TINGLY-DR SENT Hx Obtained From: Patient Onset/Duration: Started days ago - 1, Still Present Currently Pain Is: Current Pain Scale(0-10)= - 3, Mild Timing: Days - 1 Location of Headache: Frontal Aggravating Factor: Nothing Allevating Factors: Nothing Associated Signs And Symptoms: Dizziness - yesterday, today resolved, Other ( Noted In Comments) - POS: fatigue. tingling in mouth (yesterday, resolved today) - Allergies/Home Medications Allergies/Adverse Reactions: Allergies Allergy/AdvReac Type Severity Reaction Status Date / Time naproxen [From Naprosyn] Allergy Hives Verified 04/11/18 14:08 PMH/Surg Hx/FS Hx/Imm Hx Endocrine/Hematology History: Denies: Hx Diabetes, Hx Thyroid Disease Cardiovascular History: Reports: Hx Rheumatic Fever - 1992 Denies: Hx Hypertension, Hx Pacemaker/ICD Respiratory History: Denies: Hx Asthma, Hx Chronic Obstructive Pulmonary Disease (COPD) GI History: Reports: Hx Gastroesophageal Reflux Disease Denies: Hx Ulcer History: Denies: Hx Renal Disease Musculoskeletal History: Reports: Hx Arthritis - KNEES, Hx Bursitis - RT LEG Sensory History: Denies: Hx Hearing Aid Neurological History: Reports: Hx Headaches - FREQUENT Psychiatric History: Reports: Hx Attention Deficit Hyperactivity Disorder Denies: Hx Panic Disorder - Cancer History Hx Chemotherapy: No Hx Radiation Therapy: No - Surgical History Surgery Procedure, Year, and Place: RIGHT KNEE X10, THYROID, PARTIAL HYST, C- SECT, APPendectomy, TUMOR REMOVED FROM THIGH Hx Anesthesia Reactions: No Infectious Disease History: No Infectious Disease History: Denies: Hx Clostridium Difficile, Hx Hepatitis, Hx Human Immunodeficiency Virus (HIV), Hx of Known/Suspected MRSA, Hx Shingles, Hx Tuberculosis, Hx Known/ Suspected VRE, Hx Known/Suspected VRSA, History Other Infectious Disease, Traveled Outside the [place] in Last 30 Days - Family History Known Family History: Positive: Other - father: Lung cancer Family History: Grandfather: stroke - Social History Alcohol Use: Occasionally Alcohol Amount: 1-2 DRINKS/WEEKEND Substance Use Type: Reports: None Smoking Status (MU): Never Smoked Tobacco Have You Smoked in the Last Year: No Review of Systems Positive: Fatigue. Negative: Fever, Chills Negative: Erythema Negative: Sore Throat Negative: Chest Pain Negative: Shortness Of Breath, Cough Negative: Abdominal Pain, Vomiting, Nausea Negative: dysuria, hematuria Negative: Myalgia, Edema Negative: Rash Neurological: Other - POS: dizziness (yesterday, resolved today) Positive: Headache, Paresthesia - yesterday, but has resolved today All Other Systems Reviewed And Are Negative: Yes Physical Exam - Summary Physical Exam Summary: Constitutional: Well-developed, Well-nourished, Alert. (-) Distressed Skin: Warm, Dry HENT: Normocephalic; Atraumatic Eyes: Conjunctiva normal Neck: Musculoskeletal ROM normal neck. (-) JVD, (-) Stridor, (-) Tracheal deviation Cardio: Rhythm regular, rate normal, Heart sounds normal; Intact distal pulses; The pedal pulses are 2+ and symmetric. Radial pulses are 2+ and symmetric. (-) Murmur Pulmonary/Chest wall: Effort normal. (-) Respiratory distress, (-) Wheezes, (-) Rales Abd: Soft. (-) Tenderness, (-) Distension, (-) Guarding, (-) Rebound Musculoskeletal: (-) Edema Lymph: (-) Cervical adenopathy Neuro: Alert, Oriented x3, Strength normal, Cranial nerves II-XII are grossly intact. (-) Dysmetria, (-) Nystagmus, (-) Ataxia by finger to nose testing, (-) Sensory deficit. Psych: Mood and affect Normal Triage Information Reviewed: Yes Vital Signs On Initial Exam: Initial Vitals Temp Pulse Resp BP Pulse Ox 99.4 F 87 14 110/72 98 04/11/18 14:02 04/11/18 14:02 04/11/18 14:02 04/11/18 14:02 04/11/18 14:02 Vital Signs Reviewed: Yes - [place] Coma Scale Best Eye Response: 4 - Spontaneous Best Motor Response: 6 - Obeys Commands Best Verbal Response: 5 - Oriented Coma Scale Total: 15 Diagnostics - Vital Signs Vital Signs Temp Pulse Resp BP Pulse Ox 04/11/18 15:19 80 18 101/65 97 04/11/18 15:18 71 99 04/11/18 14:02 99.4 F 87 14 110/72 98 - Laboratory Lab Results: Lab Results 04/11/18 04/11/18 04/11/18 Range/Units 15:12 15:12 15:17 WBC 4.7 (3.5-10.8) 10^3/ul RBC 4.13 (4.0-5.4) 10^6/ul Hgb 12.7 (12.0-16.0) g/dl Hct 38 (35-47) % MCV 91 (80-97) fL MCH 31 (27-31) pg MCHC 34 (31-36) g/dl RDW 14 (10.5-15) % Plt Count 197 (150-450) 10^3/ul MPV 9.0 (7.4-10.4) um3 INR (Anticoag Therapy) 0.87 (0.77-1.02) APTT 29.4 (26.0-36.3) seconds Urine Color Straw Urine Appearance Clear Urine pH 6.0 (5-9) Ur Specific [place] 1.004 L (1.010-1.030) Urine Protein Negative (Negative) Urine Ketones Negative (Negative) Urine Blood Negative (Negative) Urine Nitrate Negative (Negative) Urine Bilirubin Negative (Negative) Urine Urobilinogen Negative (Negative) Ur Leukocyte Esterase Negative (Negative) Urine Glucose Negative (Negative) Result Diagrams: 04/11/18 15:12 04/11/18 15:12 Lab Statement: Any lab studies that have been ordered have been reviewed, and results considered in the medical decision making process. - CT Brain CT CT Interpretation: No Acute Changes - IMPRESSION: No evidence for acute intracranial abnormality. Dr. Johnson has reviewed this radiology report. CT Interpretation Completed By: Radiologist - Additional Comments Diagnostic Additional Comments: Head/Neck CTA, as read by radiologist IMPRESSION: Normal CT angiography of the head and neck. Dr. Johnson has reviewed this radiology report. Re-Evaluation - Re-Evaluation First Eval Re-Evaluation Time: 16:51 Comment: I reviewed Dr. Santana's recommendations with the pt. I discussed the plan for admission. Headache Course/Dx - Course Assessment/Plan: Pt is a 52 y/o female who presents with a headache since yesterday. Pt reports yesterday she was in [place] for training when she suddenly felt dizzy. She states the top of her head began tingling and thought she was going to pass out. Pt notes she was told she turned pale and EMT was called. As she was talking to EMT pt felt the right side of her mouth felt "funny." Pt refused to be transferred to a hospital as she didn't want to miss her flight back home. These symptoms lasted for 10 minutes and after they resolved her headache began. Today her headache continues but all her other symptoms have resolved. Currently she states feeling tired and with a headache. Brain CT shows no evidence for acute intracranial abnormality. I discussed pt care with Dr. Santana, neurologist, who recommends admission for possible TIA. He also recommends CTA head/neck and MRI tonight. I discussed with Dr. Herron, hospitalist, who has agreed to admit the pt. - Diagnoses Provider Diagnoses: TIA (transient ischemic attack) - Physician Notifications Discussed Care Of Patient With: Familia S Esther Time Discussed With Above Provider: 16:46 Instructed by Provider To: Other - I discussed pt care with Dr. Santana, neurologist, who recommends admission for possible TIA. He also recommends CTA head/neck and MRI tonight. [16:55] I discussed with Dr. Herron, hospitalist, who has agreed to admit the pt. Discharge - Sign-Out/Discharge Documenting (check all that apply): Discharge/Admit/Transfer - Admit - Discharge Plan Condition: Stable Disposition: ADMITTED TO [facility] Referrals: Chidi Chaves MD [Primary Care Provider] - The documentation as recorded by the Krzysztof james Angela accurately reflects the service I personally performed and the decisions made by me, Dell Johnson MD.
== END 2018-04-14 15:00 | disposition home or self-care (01) | DRG 312 ==
LOC: ED 13:51 → MEDTELE 16:58 → OBSVTOIN 04-12 14:39
PROVIDERS: ADMIT Family Medicine; ATTEND Family Medicine
DX: R55 Syncope and collapse (principal); T43.625A Adverse effect of amphetamines, initial encounter; G93.9 Disorder of brain, unspecified; I36.1 Nonrheumatic tricuspid (valve) insufficiency; R00.2 Palpitations; R29.818 Other symptoms and signs involving the nervous system; M17.11 Unilateral primary osteoarthritis, right knee; M62.838 Other muscle spasm; R51 Headache; Z80.1 Family history of malignant neoplasm of trachea, bronchus and lung; Y92.9 Unspecified place or not applicable; Z79.899 Other long term (current) drug therapy; Z88.8 Allergy status to other drugs, medicaments and biological substances
CPT/HCPCS: 36415; 70450; 70496; 70498; 70551; 78452; 80048; 80053; 80061; 81003; 83036; 83735; 84484; 85025; 85027; 85610; 85730; 93017; 93306; 99283; A9270-GY; A9502; G0378; J0280; J2785; Q9967

== ENCOUNTER 2018-06-21 18:59 | Emergency (ER) | payer OTHER ==
[2018-06-21 19:21] VITALS: BP 122/72
[2018-06-21] MEDS ORDERED: Tetan/Diph/Pertus SYR(Tdap)* 0.5 ML SYR(BOOSTRIX) use SYR IM ONE (19:35)
[2018-06-21] MEDS ORDERED: Bupivacaine 0.25% SDV* 30 ML INJ ONE ×2 (19:52→19:56)
[2018-06-21] MEDS ORDERED: Bupivacaine 0.25% SDV PF* 10 ML VIAL INJ ONE (19:55)
--- NOTE | 2018-06-21 19:57 | UC ---
Skin Complaint HPI - HPI Summary HPI Summary: This is Sandra james, documenting for attending, Cari Valente MD. This patient is a 52 year old F presenting to [facility] due to laceration to the left middle finger after using scissors this evening. Pain is 1/10 upon triage. States she needs a Tetanus shot. Current medications include Percocet and Adderall. Denies allergies. - History of Current Complaint Chief Complaint: UCLaceration Time Seen by Provider: 06/21/18 19:48 Stated Complaint: FINGER LAC Hx Obtained From: Patient Onset/Duration: Lasting Hours Skin Exposure Onset/Duration: Hours Ago Timing: Constant Pain Intensity: 1 Pain Scale Used: 0-10 Numeric Location: Hand (Left) - middle finger Associated Signs & Symptoms: Positive: Negative - Allergy/Home Medications Allergies/Adverse Reactions: Allergies Allergy/AdvReac Type Severity Reaction Status Date / Time naproxen [From Naprosyn] Allergy Hives Verified 06/21/18 19:21 Home Medications: Home Medications Amphetamine MIXED SALT TAB* [Adderall TAB*] 10 mg PO DAILY 06/21/18 [History Confirmed 06/21/18] Review of Systems Constitutional: Negative Skin: Other - laceration to left middle finger All Other Systems Reviewed And Are Negative: Yes PMH/Surg Hx/FS Hx/Imm Hx Previously Healthy: Yes - Surgical History Surgical History: Yes Surgery Procedure, Year, and Place: RIGHT KNEE X10, THYROID, PARTIAL HYST, C- SECT, APPendectomy, TUMOR REMOVED FROM THIGH - Family History Known Family History: Positive: Other - Lung cancer - Social History Alcohol Use: Rare Alcohol Amount: 1-2 DRINKS/WEEKEND Substance Use Type: None Smoking Status (MU): Never Smoked Tobacco Have You Smoked in the Last Year: No - Immunization History Most Recent Influenza Vaccination: 08/16 Most Recent Tetanus Shot: unknown Most Recent Pneumonia Vaccination: never Physical Exam - Summary Physical Exam Summary: Appearance: Well-appearing, Well-nourished Skin: Warm, Jagged V shaped 2.5cm laceration on volar surface of left middle finger in between middle and distal phalanx Eyes: Normal ENT: Normal Neck: Supple, nontender Respiratory: Clear to auscultation Cardiovascular: Regular rate, regular rhythm. Normal S1, S2. Abdomen: Soft, nontender Musculoskeletal: Normal, Strength/ROM Intact Neurological: Normal, A&Ox3 Psychiatric: Normal General: No acute distress Triage Information Reviewed: Yes Vital Signs: Initial Vital Signs Temp 98.2 F 06/21/18 19:17 Pulse 80 06/21/18 19:17 Resp 16 06/21/18 19:17 BP 122/72 06/21/18 19:17 Pulse Ox 100 06/21/18 19:17 Vital Signs Reviewed: Yes Laceration Repair - Laceration Repair 1 Description: Irregular - V shaped Closure Material: Sutures - 8 Closure Method: Single Layer Suture Type: Prolene Course/Dx - Course Course Of Treatment: wound edges approximated with EIGHT 5-0 prolene sutures under local anesthesia. Pt tolerated procedure well - Diagnoses Provider Diagnoses: left middle finger laceration Discharge - Sign-Out/Discharge Documenting (check all that apply): Patient Departure - Discharge Plan Condition: Stable Disposition: HOME Prescriptions: Cephalexin CAP* [Keflex CAP*] 500 mg PO QID 10 Days #40 cap Patient Education Materials: Care For Your Stitches (ED) Referrals: Chidi Chaves MD [Primary Care Provider] - Additional Instructions: Please return to urgent care for wound check in 2 days - Billing Disposition and Condition Condition: STABLE Disposition: Home
[2018-06-21] MEDS ORDERED: Cephalexin CAP* 500 MG PO ONE (20:19)
== END 2018-06-21 20:26 | disposition home or self-care (01) ==
LOC: UCEAST 18:59
DX: S61.213A Laceration without foreign body of left middle finger without damage to nail, initial encounter (principal); W45.8XXA Other foreign body or object entering through skin, initial encounter; Y92.9 Unspecified place or not applicable; Z88.5 Allergy status to narcotic agent
CPT/HCPCS: 12001; 90471; 90715; 99212; A9270-GY; G0463; J3490

== ENCOUNTER 2018-06-23 14:38 | Emergency (ER) | payer OTHER ==
--- NOTE | 2018-06-23 15:56 | UC ---
HPI Wound/Suture Re-check - HPI Summary HPI Summary: 52 y/o female presents to the urgent care c/o Having left middle finger wound rechecked since laceration s/p opening a can w/ scissors on 06/21/2018. Pt reports she was Rx Keflex PO but hasn't been able to get medication yet. She wants to make sure it is not getting infected. Mild swelling and pain is 4/10 at touch w/ mild numbness over the tip of finger. Pt denies fever, SOB, chest pain, abdominal pain, N/V/D. - History Of Current Complaint Stated Complaint: WOUND RECHECK Time Seen by Provider: 06/23/18 15:51 Hx Obtained From: Patient Onset/Duration: Sudden Onset, Lasting Days - 3 days, Still Present Severity: Mild Pain Intensity: 4 Pain Scale Used: 0-10 Numeric Hands: 1 - laceration - Allergies/Home Medications Allergies/Adverse Reactions: Allergies Allergy/AdvReac Type Severity Reaction Status Date / Time naproxen [From Naprosyn] Allergy Hives Verified 06/23/18 16:10 PMH/Surg Hx/FS Hx/Imm Hx Previously Healthy: Yes Psychological History: Anxiety Other Psychological History: ADHD - Surgical History Surgical History: Yes Surgery Procedure, Year, and Place: RIGHT KNEE X10, THYROID, PARTIAL HYST, C- SECT, APPendectomy, TUMOR REMOVED FROM THIGH - Family History Family History: Lung cancer - Social History Occupation: Employed Full-time Lives: With Family Alcohol Use: Rare Alcohol Amount: 1-2 DRINKS/WEEKEND Substance Use Type: None Smoking Status (MU): Never Smoked Tobacco Have You Smoked in the Last Year: No - Immunization History Most Recent Influenza Vaccination: 08/16 Most Recent Tetanus Shot: unknown Most Recent Pneumonia Vaccination: never Review of Systems Constitutional: Negative Skin: Other - left middle finger w/ mild redness and pain Eyes: Negative ENT: Negative Respiratory: Negative Cardiovascular: Negative Gastrointestinal: Negative Genitourinary: Negative Motor: Negative Neurovascular: Negative Musculoskeletal: Other: - left middle finger pain s/p laceration repair Neurological: Negative Psychological: Negative Is Patient Immunocompromised?: No All Other Systems Reviewed And Are Negative: Yes Physical Exam - Summary Physical Exam Summary: Vital Signs Reviewed: Yes General: well developed, well nourished female sitting in the examining table w/ o any apparent distress Eye Exam: Normal Eyes: Positive: Conjunctiva Clear - PERRLA, EOMI, fundi grossly normal ENT: Positive: Normal ENT inspection, Hearing grossly normal, Pharynx normal, TMs normal Neck: Positive: Supple, Nontender, No Lymphadenopathy Respiratory: Positive: Chest non-tender, Lungs clear, Normal breath sounds, No respiratory distress Cardiovascular: Positive: RRR, No Murmur, Pulses Normal, Brisk Capillary Refill Abdomen Description: Positive: Nontender, No Organomegaly, Soft. Negative: CVA Tenderness (R), CVA Tenderness (L) Bowel Sounds: Positive: Present Musculoskeletal: Positive: Strength Intact, ROM Intact, No Edema Neurological: Positive: Alert, Muscle Tone Normal Psychological Exam: Normal Skin: Positive: Positive semilunar laceration at the level of left 3rd volar side of DIPJ w/ 8 sutures in placed w/ discrete erythema around wound. FROM of finger. About 2.0cm in size, sensation intact, capillary refill brisk, and pulses WNL. Triage Information Reviewed: Yes Course/Dx - Course Course Of Treatment: 52 y/o female presents to the urgent care c/o Having left middle finger wound rechecked since laceration s/p opening a can w/ scissors on 06/21/2018. Pt reports she was Rx Keflex PO but hasn't been able to get medication yet. She wants to make sure it is not getting infected. Mild swelling and pain is 4/10 at touch w/ mild numbness over the tip of finger. Pt denies fever, SOB, chest pain, abdominal pain, N/V/D. Hx obtained. Pt w/ a semilunar laceration at the level of left 3rd DIPJ w/ 8 sutures in placed w/ discrete erythema around wound. FROM of finger on examaintion. Wound cleaned, and bacitracin applied and sterile dressing applied. Advised to start taking Keflex PO as recommended before. D/C instructions explained. Pt understood and agreed w/ plan of care. - Differential Dx - Laceration/Wound Differential Diagnoses: Cellulitis, Healing Wound, Hematoma, Suture Removal Provider Diagnoses: 1- Wound re-check s/p laceration repair of left 3rd phalanx Discharge - Sign-Out/Discharge Documenting (check all that apply): Patient Departure - D/c home - Discharge Plan Condition: Stable Disposition: HOME Prescriptions: Bacitracin OINTMENT* 1 applic TOPICAL BID #1 tube Patient Education Materials: Care For Your Stitches (ED), Acute Wound Care (ED) Referrals: Chidi Chaves MD [Primary Care Provider] - 1 Week Additional Instructions: 1-Please apply topical antibiotic over the wound. Keep wound clean and dry. Start taking Keflex PO as directed before. 2- F/u suture removal in 10-12 days days w/ your PCP or here at the urgent care. 3-Take Ibuprofen or Tylenol PO q6-8hrs prn for pain or swelling. 4- If you develop fever or redness around your finger despite the antibiotic please return to the Urgent care for further management - Billing Disposition and Condition Condition: STABLE Disposition: Home
[2018-06-23 16:04] VITALS: BP 127/81
== END 2018-06-23 16:30 | disposition home or self-care (01) ==
LOC: UCEAST 14:38
DX: S61.213D Laceration without foreign body of left middle finger without damage to nail, subsequent encounter (principal); W26.8XXD Contact with other sharp object(s), not elsewhere classified, subsequent encounter; Z88.4 Allergy status to anesthetic agent
CPT/HCPCS: 99212; G0463

== ENCOUNTER 2018-09-01 07:03 | Emergency (ER) | payer OTHER ==
[2018-09-01 07:22] VITALS: BP 117/59
--- NOTE | 2018-09-01 07:24 | UC ---
Ear Complaint HPI - HPI Summary HPI Summary: 52-year-old woman comes in to clinic today with a chief complaint of left ear pain. This pain started yesterday. Its moderate in intensity. It did get a little bit better with some ibuprofen. She does have cough today. No fevers or rhinorrhea. Denies any dental pain. She has not been swimming or in the water a lot. Pain is worse with opening and closing of the mouth but the jaw joint itself is not tender. There is some mild tenderness in the left side of the head. There is no rash. No fever. - History of Current Complaint Stated Complaint: EAR PAIN Time Seen by Provider: 09/01/18 07:18 - Allergies/Home Medications Allergies/Adverse Reactions: Allergies Allergy/AdvReac Type Severity Reaction Status Date / Time naproxen [From Naprosyn] Allergy Hives Verified 09/01/18 07:16 PMH/Surg Hx/FS Hx/Imm Hx - Additional Past Medical History Additional PMH: adhd, chronic knee pain Previously Healthy: No - Surgical History Surgical History: Yes Surgery Procedure, Year, and Place: RIGHT KNEE X10, THYROID, PARTIAL HYST, C- SECT, APPendectomy, TUMOR REMOVED FROM THIGH - Family History Known Family History: Positive: Other - Lung cancer Negative: Hypertension, Diabetes Family History: Lung cancer - Social History Alcohol Use: Rare Alcohol Amount: 1-2 DRINKS/WEEKEND Substance Use Type: None Smoking Status (MU): Never Smoked Tobacco Have You Smoked in the Last Year: No - Immunization History Most Recent Influenza Vaccination: 08/16 Most Recent Tetanus Shot: unknown Most Recent Pneumonia Vaccination: never Review of Systems Constitutional: Negative Skin: Negative Eyes: Negative ENT: Ear Ache Respiratory: Negative Cardiovascular: Negative, Palpitations Gastrointestinal: Negative Genitourinary: Negative Motor: Negative Neurovascular: Negative Musculoskeletal: Negative Neurological: Negative Psychological: Negative Is Patient Immunocompromised?: No All Other Systems Reviewed And Are Negative: Yes Physical Exam Triage Information Reviewed: Yes Appearance: Well-Appearing, No Pain Distress, Well-Nourished Vital Signs Reviewed: Yes Eye Exam: Normal Eyes: Positive: Conjunctiva Clear ENT: Positive: Pharynx normal, TMs normal. Negative: Pharyngeal erythema, Nasal congestion, Nasal drainage, TM red, Tonsillar swelling Dental Exam: Normal Neck exam: Normal Neck: Positive: Supple Respiratory Exam: Normal Respiratory: Positive: Lungs clear, Normal breath sounds, No respiratory distress Cardiovascular: Positive: RRR Musculoskeletal Exam: Normal Musculoskeletal: Positive: Strength Intact, ROM Intact Neurological Exam: Normal Neurological: Positive: Alert Psychological Exam: Normal Skin Exam: Normal Ear Complaint Course/Dx - Course Course Of Treatment: No obvious cause of pain at this moment. We will treat with Augmentin and antibiotic eardrops. We discussed the possibility of shingles. And the patient knows to look out for rash and see her primary care doctor if a rash develops. No evidence of TMJ syndrome or dental infection. The parotid gland and submandibular glands are nontender. Follow-up with primary care doctor reevaluation sooner if worse. - Differential Dx/Diagnosis Provider Diagnoses: Left ear pain Discharge - Sign-Out/Discharge Documenting (check all that apply): Patient Departure All imaging exams completed and their final reports reviewed: No Studies - Discharge Plan Condition: Stable Disposition: HOME Prescriptions: Amoxicillin/Clavulanate TAB* [Augmentin TAB 875*] 875 mg PO BID #20 tab Neomyc/Polym/HC 1% OTIC SUSP* [Cortisporin Otic Susp 1%*] 4 drop LEFT EAR QID # 1 btl Patient Education Materials: Earache (ED) Referrals: Chidi Chaves MD [Primary Care Provider] - Additional Instructions: FOLLOW UP WITH YOUR DOCTOR. IF YOU DEVELOP A ADELITA, IT COULD BE SHINGLES AND YOU NEED TO GET RECHECKED BY A MEDICAL PROVIDER. GET RECHECKED FOR ANY WORSENING OF YOUR CONDITION OR QUESTIONS OR CONCERNS. - Billing Disposition and Condition Condition: STABLE Disposition: Home
== END 2018-09-01 07:30 | disposition home or self-care (01) ==
LOC: UCEAST 07:03
DX: H92.02 Otalgia, left ear (principal); Z88.6 Allergy status to analgesic agent
CPT/HCPCS: 99212; G0463

== ENCOUNTER 2018-12-11 18:18 | Emergency (ER) | payer OTHER ==
[2018-12-11 18:40] VITALS: BP 129/66
--- NOTE | 2018-12-11 19:21 | UC ---
Throat Pain/Nasal Ham HPI - HPI Summary HPI Summary: 53-year-old woman comes in today with a chief complaint of runny nose sore throat sinus pressure chills for 4 days. Rhinorrhea is now yellow. She stands [id number] medications which do help with symptoms some but then they return. Denies any cough or chest congestion. Has some mild body aches. She does not think she has the flu. - History of Current Complaint Chief Complaint: UCGeneralIllness Stated Complaint: cough, and EAR ACHE Time Seen by Provider: 12/11/18 19:14 Pain Intensity: 0 - Allergies/Home Medications Allergies/Adverse Reactions: Allergies Allergy/AdvReac Type Severity Reaction Status Date / Time naproxen [From Naprosyn] Allergy Hives Verified 12/11/18 18:40 Home Medications: Home Medications Ibuprofen TAB* [Advil TAB*] 400 mg PO TID PRN 12/11/18 [History Confirmed ] PMH/Surg Hx/FS Hx/Imm Hx Previously Healthy: Yes - Surgical History Surgical History: Yes Surgery Procedure, Year, and Place: RIGHT KNEE X10, THYROID, PARTIAL HYSTERECTOMY, C- SECT, APPendectomy, TUMOR REMOVED FROM THIGH - Family History Known Family History: Positive: Other - Lung cancer Negative: Hypertension, Diabetes Family History: Lung cancer - Social History Alcohol Use: Occasionally Alcohol Amount: 1-2 DRINKS/WEEKEND Substance Use Type: None Smoking Status (MU): Never Smoked Tobacco Have You Smoked in the Last Year: No - Immunization History Most Recent Influenza Vaccination: 08/16 Most Recent Tetanus Shot: unknown Most Recent Pneumonia Vaccination: never Review of Systems All Other Systems Reviewed And Are Negative: Yes Constitutional: Positive: Chills Skin: Positive: Negative Eyes: Positive: Negative ENT: Positive: Sore Throat, Nasal Discharge, Sinus Congestion, Sinus Pain/ Tenderness Respiratory: Positive: Negative Cardiovascular: Positive: Negative Gastrointestinal: Positive: Negative Motor: Positive: Negative Neurovascular: Positive: Negative Musculoskeletal: Positive: Negative Neurological: Positive: Negative Psychological: Positive: Negative Is Patient Immunocompromised?: No Physical Exam Triage Information Reviewed: Yes Appearance: No Pain Distress, Well-Nourished, Ill-Appearing - MILD Vital Signs: Initial Vital Signs Temp 98.8 F 12/11/18 18:37 Pulse 73 12/11/18 18:37 Resp 18 12/11/18 18:37 BP 129/66 12/11/18 18:37 Pulse Ox 100 12/11/18 18:37 Vital Signs Reviewed: Yes Eye Exam: Normal Eyes: Positive: Conjunctiva Clear ENT: Positive: Pharyngeal erythema, Nasal congestion, Nasal drainage, TM dull - RIGHT Neck exam: Normal Neck: Positive: Supple Respiratory: Positive: Lungs clear, Normal breath sounds, No respiratory distress Cardiovascular: Positive: RRR Musculoskeletal Exam: Normal Musculoskeletal: Positive: Strength Intact, ROM Intact Neurological Exam: Normal Neurological: Positive: Alert, Muscle Tone Normal Psychological Exam: Normal Psychological: Positive: Age Appropriate Behavior Skin Exam: Normal Throat Pain/Nasal Course/Dx - Course Course Of Treatment: DISCUSSED VIRAL VERSES BACTERIAL INFECTION AND THE ROLE OF ANTIBIOTICS. THE PATIENT WISHES TO BE ON ANTIBIOTIC AT THIS TIME. - Differential Dx/Diagnosis Provider Diagnosis: Upper respiratory infection Discharge - Sign-Out/Discharge Documenting (check all that apply): Patient Departure All imaging exams completed and their final reports reviewed: No Studies - Discharge Plan Condition: Stable Disposition: HOME Prescriptions: Amoxicillin/Clavulanate TAB* [Augmentin TAB 875*] 875 mg PO BID #20 tab Patient Education Materials: Upper Respiratory Infection (ED) Forms: *Work Release Referrals: Chidi Chaves MD [Primary Care Provider] - Additional Instructions: FOLLOW UP WITH YOUR DOCTOR IF NOT COMPLETELY IMPROVED. GET RECHECKED FOR ANY WORSENING OF YOUR CONDITION OR QUESTIONS OR CONCERNS. - Billing Disposition and Condition Condition: STABLE Disposition: Home
== END 2018-12-11 19:29 | disposition home or self-care (01) ==
LOC: UCEAST 18:18
DX: J06.9 Acute upper respiratory infection, unspecified (principal); Z88.6 Allergy status to analgesic agent
CPT/HCPCS: 99212; G0463

== ENCOUNTER → 2019-10-27 07:19 | Day surgery (SDC) | payer BC, OTHER ==
--- NOTE | 2019-10-21 15:45 | HP ---
HISTORY AND PHYSICAL: DATE OF ADMISSION: 10/27/19 We are planning a right knee arthroscopic surgery at [facility] on a same-day surgery basis on 10/27/19. CHIEF COMPLAINT: Right knee pain. HISTORY OF PRESENT ILLNESS: The patient has had right knee pain for many years and she has been considering a knee replacement and does not have time to get that done. Because of recent severe knee pain with swelling, we have recommended an arthroscopic surgery to try to help with the severe pain. The expected help can be from washing the knee out and will be caring for torn cartilage, loose bodies, injured cartilage and flaps of cartilage as necessary during the surgical care. PAST MEDICAL HISTORY: She has a history of DVT from 1989. She was on Coumadin for 6 months. This was after a right knee surgery. She has also had a partial thyroidectomy. No history of pulmonary embolism. ALLERGIES: No allergies. MEDICATIONS: Include: 1. Acyclovir. 2. Percocet less than 1 per day. 3. Amphetamine/dextroamphetamine 10 mg which she does not use each day. The patient was advised to the septal defect in her heart last year. No further workup was recommended. The patient is able to do two flights of stairs without chest pain without shortness of breath. She is very busy working for [employer] at the [employer] and helping with luggage. FAMILY HISTORY: No cancers. No diabetes. SOCIAL HISTORY: No smoking. Occasional alcoholic beverages. PHYSICAL EXAMINATION GENERAL: Well nourished, well developed, not acutely distressed. VITAL SIGNS: Temp 97.8, blood pressure 117/70, pulse is 85. Weight 150. Height 5 feet 3 inches. She has a limp on the right. HEENT: The head is NC/AT. LUNGS: Clear bilaterally. HEART: Regular. S1, S2 normal. No murmurs or gallops. ABDOMEN: Soft, nontender. There is no organomegaly. EXTREMITIES: The right knee has an effusion with some valgus. Extension -2 to 3 degrees, flexion 110. Tenderness laterally, medially. MCL and LCL are stable. Nabeel and posterior drawer are normal. The thigh and calf are soft. The foot pulse is intact. No swelling of the legs, ankles and feet bilaterally. NEUROLOGIC: Cranial nerves are grossly intact. IMPRESSION: Severe right knee arthritis. There is meniscal tearing medially and laterally. Possible loose fragments and cartilage flap fragments. PLAN: The plan is for right knee arthroscopic surgery. Goals, risks, and complications have been reviewed with the patient in my office and her questions were answered. [id number]/CPS #: [id number] MTDD
[~2019-10-27 07:19] MED LIST: Acetaminophen IV 1GM/100ML * 1,000 MG/100 ML VIAL IVPB ONE; Acetaminophen IV 1GM/100ML * 100 ML ONE; Buffered Lidocaine 1% SYRIN* 1 ML/SYRINGE INTRADERM ONE; Bupivacaine 0.5% W/EPI SDV* 10 ML VIAL INJ ONE; Dexamethasone IV* 4 MG/ML 1 ML (4 MG) ONE; DiMENhydriNATE IV* 50 MG/ML VIAL IV PUSH PRN; Lactated Ringers 1000 ML Bag* 1,000 ML IV SCH; Lidocaine 2% PF * 5 ML VIAL ONE; Midazolam* 1 MG/ML 2 ML VIAL (2 MG) ONE; Naloxone* 0.4 MG/ML 1 ML VIAL IV PRN; Ondansetron INJ* 2 MG/ML VIAL ONE; Propofol* 10 MG/ML 20 ML BTL ONE; Sodium Citrate/Citric Acid* 15 ML UDC ONE; Sodium Citrate/Citric Acid* 15 ML UDC PO ONE; ceFAZolin 2 GM in NS PREMIX(*) 2 GM/100 ML BAG IVPB ONE; fentaNYL* 50 MCG/ML 2 ML VIAL (100 MCG VIAL) ONE
[2019-10-27] MEDS: fentaNYL* 50 MCG/ML 2 ML VIAL (100 MCG VIAL) IV PRN ×2 (11:17→11:27)
[2019-10-27 12:18] VITALS: BP 110/62
--- NOTE | 2019-10-27 19:09 | OP ---
DATE OF OPERATION: 10/27/19 - SDS DATE OF : [birth year] AGE: 54. SURGICAL CARE: Right knee. SURGEON: Raffaele Purdy MD PHARMACOEPIDEMIOLOGIST: ANDREEA Toledo, assistant bookkeeper. ANESTHESIOLOGIST: Dr. David Porras. ANESTHESIA: LMA, general. PRE-OP DIAGNOSIS: Right knee arthritis with possible cartilage tearing. POST-OP DIAGNOSES: 1. Right knee arthritis with possible cartilage tearing. 2. Lateral meniscal tear. 3. Articular cartilage tearing, medial femoral condyle. OPERATIVE PROCEDURE: Right knee arthroscopic surgery with partial lateral meniscectomy and chondroplasty of the medial femoral condyle. COMPLICATIONS: There were no complications. DRAINS: There were no drains. BLOOD LOSS: 20 mL. REPLACEMENT: Crystalloid fluids. INDICATIONS: Severe pain in the right knee with severe arthritis and possible loose bodies cartilage tearing. DESCRIPTION OF PROCEDURE: The patient was brought to the operating room and placed on the operating room table in a supine position. Following the administration of the anesthetic and insertion of a laryngeal airway, the right lower extremity was wrapped with a proximal tourniquet. The knee was given a preliminary chlorhexidine prep and then a formal ChloraPrep from the tourniquet to the foot. After prepping, draping, and sealing off, we did our universal protocol time-out confirming Cristin Boo and a plan for right knee arthroscopic surgery. We all agreed and we proceeded. The right leg was exsanguinated. The tourniquet was elevated to 275. The knee was set up for arthroscopy with the arthroscope lateral to the patellar tendon. Probe and operating instruments medial to the patellar tendon and an in- flow catheter superomedial to the patellar. The knee was initially irrigated out with several liters of the saline and there was not a lot of debris within the knee. The arthroscopic survey showed that the patellofemoral joint had some irregularity of cartilage, no loose flaps. There was a little synovitis around the superolateral of the patellar which was shaved out. The medial and lateral gutters were essentially clear. The lateral femoral condyle, lateral tibial plateau both eburnated with some small old cartilage and the medial femoral condyle had cartilage tearing, looseness anteriorly with area 1 cm x 0.5 cm that was shaved to remove the loose cartilage on the articular surface. The lateral meniscus was still loose and torn up anteriorly and that was excised as well as the anterior attachment of the lateral meniscus. After the surgical care and the irrigation, the knee was irrigated with another 3 L of saline irrigation solution after the tourniquet was deflated. Then instilled with Marcaine with epinephrine and the skin portals closed with interrupted 3-0 Surgipro and the dressing applied after washing and drying with Betadine-soaked release, sterile gauze, sterile Webril, Cryo therapy cuff, ABD pads, and then a 6 inch [place] bandage loosely applied. The patient was returned to the recovery room in stable and satisfactory condition having tolerated the procedure very well. The prognosis is somewhat guarded for this knee. The patient knows that she needs a knee replacement for several years, but because of the recent severe pain, this diagnostic and surgical arthroscopy was recommended. [id number]/CPS #: [id number] MTDD
== END | disposition home or self-care (01) ==
LOC: OR 07:19
PROVIDERS: ATTEND Orthopaedic Surgery
DX: M17.11 Unilateral primary osteoarthritis, right knee (principal); M23.200 Derangement of unspecified lateral meniscus due to old tear or injury, right knee; M23.91 Unspecified internal derangement of right knee
CPT/HCPCS: 88304; A9270-GY; J0690; J1100; J2250; J2405; J2704; J3010